=== PATIENT | female | born 1940 | race Caucasian/White ===

== ENCOUNTER → 2016-06-22 | Outpatient (CLI) | payer MEDICARE, OTHER ==
[~2016-06-22] MED LIST: CITALOPRAM HBR40 MG PO; HYDROCODON-ACE1 EACH PO; ZYRTEC-D TABLE1 EACH PO
--- NOTE | ~2016-06-22 | XA30 ---
[facility] A Service of [facility] RADIOLOGY TEXT RESULTS PATIENT: FRANK PENA [facility] UNIT #: [id number] AGE: [address]: Gustabo Ortiz MD SEX: F ORDER DR: [id number] [facility] [address] [place], [place] [address] [id number] O MR#: [id number] Acc #: [id number] NAME: FRANK PENA : 1940 SEX: F STUDY DATE/TIME: 06/22/2016 8:52 [facility] RO[facility]: STUDY DESCRIPTION: XA Arthrocentesis Major Joint Attending Physician: Gustabo Ortiz M.D. Referring Physician: Gustabo Ortiz M.D. Ordering Physician: Gustabo Ortiz M.D. Primary Care Physician: Messi Cali Aprn MEDICAL IMAGING REPORT This report is preliminary unless electronic signature is present EXAM Left hip joint injection with steroid and local anesthetic INDICATIONS 76-year-old female with arthritis and left hip pain FLUOROSCOPY TIME 0.2 minutes. Reference air kerma 6 mGy DESCRIPTION OF PROCEDURE The risks, benefits and alternatives of the procedure were discussed with the patient and informed consent was obtained. Un the procedure room, a time-out was performed confirming correct patient and procedure. All elements maximum sterile-barrier technique utilized according guidelines appropriate for the procedure. TECHNIQUE/FINDINGS The skin overlying the left hip was prepped and draped in the usual sterile fashion. 1% lidocaine was utilized to anesthetize the skin and underlying subcutaneous tissues. Next under fluoroscopic guidance, a 22-gauge needle was advanced into hip joint space. A small amount of contrast was injected confirming satisfactory positioning. Next, 2 mL of 40 mg/mL Depo-Medrol followed by 3 mL of bupivacaine was injected into the hip joint space. Needle was removed and a sterile dressing was applied. No immediate complications. Pre-procedure pain was 8, postprocedure pain was 1. IMPRESSION Technically successful fluoroscopically guided left hip joint injection with steroid and local anesthetic. Dictated by... Clifford Arvizu M.D. [facility] A Service of [facility] RADIOLOGY TEXT RESULTS PATIENT: FRANK PENA LOCATION: [facility] : 39 UNIT #: [id number] AGE: [address]: Gustabo Ortiz MD SEX: F ORDER DR: THIS IS AN ELECTRONICALLY VERIFIED REPORT Clifford Arvizu M.D. at 06/23/2016 8:58 AM ARS/to TD: 06/22/2016 18:16 JOB #: [id number] MEDICAL IMAGING REPORT Page 1 of 1 COPY
== END | disposition home or self-care (01) ==
LOC: CIVR 08:26
PROC: 3E0U33Z Introduction of Anti-inflammatory into Joints, Percutaneous Approach (ICD-10-PCS; principal; 2016-06-22)
DX: M16.12 Unilateral primary osteoarthritis, left hip (principal)
CPT/HCPCS: 77002; J1030; Q9966

== ENCOUNTER → 2016-10-21 | Outpatient (CLI) | payer MEDICARE, OTHER ==
--- NOTE | ~2016-10-21 | XA30 ---
[facility] A Service of [facility] RADIOLOGY TEXT RESULTS PATIENT: FRANK PENA LOCATION: [facility] : 39 UNIT #: [id number] AGE: [address]: Gustabo Ortiz MD SEX: F ORDER DR: [id number] [facility] [address] [place], [place] [address] [id number] O MR#: [id number] Acc #: [id number] NAME: FRANK PENA : 1940 SEX: F STUDY DATE/TIME: 10/21/2016 12:44 UNIT: [facility] ROOM: STUDY DESCRIPTION: XA Arthrocentesis Major Joint Attending Physician: Gustabo Ortiz M.D. Referring Physician: Gustabo Ortiz M.D. Ordering Physician: Gustabo Ortiz M.D. Primary Care Physician: Messi Cali Aprn MEDICAL IMAGING REPORT This report is preliminary unless electronic signature is present EXAM Left hip joint injection with steroid and local anesthetic INDICATIONS Left hip pain and osteoarthritis. The fluoroscopy time 0.4 minutes. The reference air kerma is 10 mGy. PROCEDURE The risks, benefits and alternatives of the procedure were discussed the patient informed consent was obtained. Procedure room time-out was performed confirming correct patient and procedure. All elements of maximum sterile-barrier technique utilized according to guidelines appropriate for the procedure. TECHNIQUE/FINDINGS Skin overlying the left hip was prepped and draped in usual sterile fashion. 1% lidocaine was utilized to anesthetize the skin and underlying subcutaneous tissues. Next under fluoroscopic guidance a 22-gauge needle was advanced into the left hip joint space. Next, 2 mL of 40 mg/mL DepoMedrol followed by 3 mL of bupivacaine was injected in the hip joint space. Needle was removed and a sterile dressing was applied. No immediate complications. IMPRESSION Technically successful fluoroscopically guided left hip joint injection with steroid and local anesthetic. Dictated by... Clifford Arvizu M.D. THIS IS AN ELECTRONICALLY VERIFIED REPORT Clifford Arvizu M.D. at 10/24/2016 12:15 PM [facility] A Service of [facility] RADIOLOGY TEXT RESULTS PATIENT: FRANK PENA LOCATION: [facility] #: [id number] : 38 UNIT #: [id number] AGE: [address]: Gustabo Ortiz MD SEX: F ORDER DR: JACKSON/juliane TD: 10/21/2016 22:35 JOB #: [id number] MEDICAL IMAGING REPORT Page 1 of 1 COPY
== END | disposition home or self-care (01) ==
LOC: CIVR 12:24
DX: M25.552 Pain in left hip (principal); M19.90 Unspecified osteoarthritis, unspecified site
CPT/HCPCS: 77002; J1030; Q9966